=== PATIENT | female | born 1965 | race American Indian/Alaskan Native ===

== ENCOUNTER 2017-11-14 12:58 | Outpatient (CLI) | payer MEDICAID ==
--- NOTE | 2017-11-14 14:42 | Magnetic Resonance Report ---
MRI of the lumbar spine without contrast. History: Lumbar stenosis. Procedure: Sagittal T1-weighted, T2-weighted, inversion recovery images, and axial T1 and T2-weighted images were used in the study. Findings: At the L5-S1 level, there is a left paracentral disc herniation with associated impingement and mild posterior displacement of the left S1 nerve root. There is mild effacement of the anterior thecal sac. There is narrowing of the left inferior neural foramen. There is a mild central disc protrusion at the L3-4 level with minimal effacement of the anterior subarachnoid space. There may be a small central annular tear at this level, but this is seen on the axial images only and cannot be confirmed on the sagittal images. The remaining lumbar discs are normal. The conus appears normal. No significant bony abnormalities are seen. Impression: 1. 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 2. Small central disc protrusion at L3-4 with minimal effacement of the subarachnoid space.
== END 2017-11-14 12:59 | disposition home or self-care (01) ==
LOC: MRI 12:58
PROVIDERS: ATTEND Family Medicine
DX: M48.062 Spinal stenosis, lumbar region with neurogenic claudication (principal); M51.27 Other intervertebral disc displacement, lumbosacral region; I10 Essential (primary) hypertension
CPT/HCPCS: 72148

== ENCOUNTER 2020-02-02 06:51 | Outpatient (CLI) | payer MEDICAID ==
--- NOTE | 2020-02-02 08:14 | Cat Scan Report ---
CT CHEST WITHOUT CONTRAST HISTORY: Chronic cough for 6 months. COMPARISON: None TECHNIQUE: Routine chest CT exam performed without contrast. Lack of intravenous contrast limits eyad luation of the vascular and solid organs. CONTRAST: None. FINDINGS: CHEST CT: Heart and Pericardium: Normal heart size. Normal thickness pericardium. Vasculature: Normal. Lymphatics: No lymphadenopathy. Lungs: Normally expanded and clear lungs. No evidence of airspace disease or interstitial disease. No pulmonary nodule or mass. No pleural effusion. Trachea and Bronchi: Normal. Osseous Structures: Normal Additional Findings: Normal thyroid. The upper abdomen is unremarkable. IMPRESSION: 1. Normal chest CT. Signer Name: Nils Elkins MD Signed: 02/02/2020 8:09 AM Workstation Name: [id number]
== END 2020-02-02 06:52 | disposition home or self-care (01) ==
LOC: CT 06:51
DX: R05 Cough (principal)
CPT/HCPCS: 71250